=== PATIENT | male | born 1980 | race Caucasian/White ===

== ENCOUNTER 2022-12-08 01:30 | Emergency (ER) | payer MEDICAID ==
[~2022-12-08] VITALS: Ht 177.8 cm; Wt 75.0 kg
[2022-12-08 02:03] LABS: BASOPHILS # (AUTO) 0.1 X10'3 (0-0.2); BASOPHILS % (AUTO) 0.7 % (0-1); EOSINOPHILS % (AUTO) 0.2 % (0-6); HEMATOCRIT 50.7 % (42.0-52.0); HEMOGLOBIN 17.1 g/dl (14.0-17.9); LYMPHOCYTES # (AUTO) 2.1 X10'3 (1.1-4.8); LYMPHOCYTES % (AUTO) 23.4 % (21-51); MEAN CORPUSCULAR HEMOGLOBIN 34.2 PG (27.0-31.0); MEAN CORPUSCULAR HGB CONC 33.7 g/dL (33.0-36.5); MEAN CORPUSCULAR VOLUME 101.3 FL (78-98); MEAN PLATELET VOLUME 7.9 FL (7.4-10.4); MONOCYTES # (AUTO) 0.6 X10'3 (0-0.9); MONOCYTES % (AUTO) 7.1 % (2-12); NEUTROPHILS # (AUTO) 6.3 X10'3 (1.8-7.7); NEUTROPHILS % (AUTO) 68.6 % (42-75); PLATELET COUNT 416 X10'3 (140-440); RED BLOOD COUNT 5.01 X10'6 (4.70-6.10); RED CELL DISTRIBUTION WIDTH 14.4 % (11.5-14.5); WHITE BLOOD COUNT 9.2 X10'3 (4.5-11.0)
[2022-12-08] MEDS ORDERED: normal saline 1000ML IV soln IVB ONE (02:10)
[2022-12-08] MEDS ORDERED: famotidine/PF 10 mg/ml inj IV ONE (02:10)
[2022-12-08] MEDS ORDERED: ondansetron/PF 4mg/2ml inj IV ONE (02:10)
[2022-12-08 02:14] LABS: ALANINE AMINOTRANSFERASE 48 U/L (12-78); ALBUMIN 3.2 G/DL (3.4-5.0); ALKALINE PHOSPHATASE 92 IU/L (46-116); ANION GAP 6 (8-16); ASPARTATE AMINO TRANSFERASE 35 U/L (10-37); BILIRUBIN,TOTAL 0.3 MG/DL (0.1-1.0); BLOOD UREA NITROGEN 2 MG/DL (7-18); BUN/CREATININE RATIO 1.7 (10.0-20.0); CALCIUM 9.3 MG/DL (8.5-10.1); CHLORIDE 107 MMOL/L (99-107); CREATININE 1.19 MG/DL (0.60-1.10); GLUCOSE 122 MG/DL (70-104); LIPASE 94 U/L (73-393); POTASSIUM 4.2 MMOL/L (3.5-5.1); SODIUM 139 MMOL/L (135-145); TOTAL CARBON DIOXIDE 25.7 MMOL/L (24-32); TOTAL PROTEIN 6.5 G/DL (6.4-8.2); eGFR 68 ML/MIN
[2022-12-08] MEDS ORDERED: ONDA8TAB13 PO (03:38)
[2022-12-08 03:58] VITALS: BP 137/84
== END 2022-12-08 03:59 | disposition home or self-care (01) ==
LOC: ER 01:31
DX: K29.70 Gastritis, unspecified, without bleeding (principal); Z79.899 Other long term (current) drug therapy
CPT/HCPCS: 36415; 80053; 83690; 85025; 96361; 96374; 96375; 99284; J2405; J3490; J7030

== ENCOUNTER 2022-12-14 19:39 | Emergency (ER) | payer MEDICAID ==
[~2022-12-14] VITALS: Ht 177.8 cm; Wt 72.0 kg
[~2022-12-14 19:39] MED LIST: ONDA8TAB13 PO
[2022-12-14 20:25] LABS: BASOPHILS # (AUTO) 0.1 X10'3 (0-0.2); EOSINOPHILS % (AUTO) 0.6 % (0-6); HEMATOCRIT 50.8 % (42.0-52.0); HEMOGLOBIN 17.1 g/dl (14.0-17.9); LYMPHOCYTES # (AUTO) 2.2 X10'3 (1.1-4.8); LYMPHOCYTES % (AUTO) 27.3 % (21-51); MEAN CORPUSCULAR HGB CONC 33.6 g/dL (33.0-36.5); MEAN CORPUSCULAR VOLUME 101.4 FL (78-98); MEAN PLATELET VOLUME 7.2 FL (7.4-10.4); MONOCYTES # (AUTO) 0.8 X10'3 (0-0.9); MONOCYTES % (AUTO) 10.2 % (2-12); NEUTROPHILS % (AUTO) 60.9 % (42-75); PLATELET COUNT 417 X10'3 (140-440); RED BLOOD COUNT 5.01 X10'6 (4.70-6.10); RED CELL DISTRIBUTION WIDTH 14.5 % (11.5-14.5); WHITE BLOOD COUNT 8.1 X10'3 (4.5-11.0)
[2022-12-14 20:26] LABS: CLARITY,URINE CLEAR (Clear); COLOR,URINE STRAW (Yellow); GLUCOSE, URINE NEGATIVE (Neg); KETONES,URINE NEGATIVE (Neg); LEUKOCYTE ESTERASE ,URINE NEGATIVE (Neg); NITRITES, URINE NEGATIVE (Neg); OCCULT BLOOD,URINE NEGATIVE (Neg); PH,URINE 6.5 (4.8-8.0); PROTEIN,URINE NEGATIVE (Neg); UROBILINOGEN,URINE 0.2 E.U/dL (0.2-1.0)
[2022-12-14 20:36] LABS: UA COLLECTION TYPE CLN CATCH MIDSTREAM
[2022-12-14 20:41] LABS: ALANINE AMINOTRANSFERASE 121 U/L (12-78); ALBUMIN 3.2 G/DL (3.4-5.0); ALKALINE PHOSPHATASE 78 IU/L (46-116); ANION GAP 4 (8-16); ASPARTATE AMINO TRANSFERASE 47 U/L (10-37); BILIRUBIN,TOTAL 0.2 MG/DL (0.1-1.0); BLOOD UREA NITROGEN 3 MG/DL (7-18); BUN/CREATININE RATIO 2.5 (10.0-20.0); CALCIUM 8.3 MG/DL (8.5-10.1); CHLORIDE 105 MMOL/L (99-107); CREATININE 1.21 MG/DL (0.60-1.10); GLUCOSE 64 MG/DL (70-104); LIPASE 143 U/L (73-393); POTASSIUM 4.6 MMOL/L (3.5-5.1); SODIUM 136 MMOL/L (135-145); TOTAL CARBON DIOXIDE 27.5 MMOL/L (24-32); TOTAL PROTEIN 6.5 G/DL (6.4-8.2); eGFR 66 ML/MIN
--- NOTE | 2022-12-14 21:44 | NUR ---
PT STATES HE IS HERE FOR DETOX HE LAST HAD ETOH THIS AM STATES HE DRINKS A 12 PACK PER DAY FOR YEARS. PT STATES HE IS EXPERIENCING BURNING IN HIS UPPER ABD R/T ETOH USE, N/V. PT STATES HE IS HAPPY HE IS ALIVE DENIES S/I, H/I AND IS READY TO STOP DRINKING. N/V IS INTERMITTENT PER PT.
[2022-12-14] MEDS ORDERED: normal saline 1000ml 1,000 ML IV ONE ×2 (22:30→23:55)
[2022-12-14] MEDS ORDERED: LORazepam 2 mg/ml vial IV ONE (22:30)
[2022-12-14] MEDS ORDERED: ondansetron/PF 4mg/2ml inj IV ONE (22:30)
[2022-12-14 22:50] LABS: ETHANOL 0.065 GM/DL (0.0-0.010)
--- NOTE | 2022-12-14 23:01 | NUR ---
LAST DRINK THIS MORNING. AWAKENING IN SWEATS, GENERALIZED FEELINGS OF ANXIETY/AWEFULLNESS AND PAIN IN ABD. SHAKINESS. MENTAL FOG. DENIES HALLUCINATIONS.
[2022-12-14] MEDS ORDERED: folic acid 1mg tablet PO ONE (23:55)
[2022-12-14] MEDS ORDERED: multivitamins, therapeutics tablet PO STA (23:55)
[2022-12-14] MEDS ORDERED: thiamine 100mg tablet PO ONE (23:55)
[2022-12-14] MEDS ORDERED: LORazepam 1 MG tablet PO ONE (23:55)
[2022-12-14] MEDS ORDERED: ondansetron 4mg rapidly disintigrating tab PO ONE (23:55)
[2022-12-14] MEDS ORDERED: GABA-534 PO (23:59)
[2022-12-14] MEDS ORDERED: ATI1T PO (23:59)
[2022-12-14] MEDS ORDERED: ONDA4TAB12 PO (23:59)
[2022-12-15 00:54] VITALS: BP 126/73
== END 2022-12-15 00:56 | disposition home or self-care (01) ==
LOC: ER 19:39
DX: F17.200 Nicotine dependence, unspecified, uncomplicated (principal); F10.239 Alcohol dependence with withdrawal, unspecified; Z90.49 Acquired absence of other specified parts of digestive tract; Y90.9 Presence of alcohol in blood, level not specified
CPT/HCPCS: 36415; 80053; 80320; 81003; 83690; 85025; 96361; 96374; 96375; 99285; J2060; J2405; J7030

== ENCOUNTER 2022-12-15 23:06 | Emergency (ER) | payer MEDICAID ==
[~2022-12-15] VITALS: Ht 177.8 cm; Wt 77.2 kg
[~2022-12-15 23:06] MED LIST changes: +ATI1T PO; +GABA-534 PO; +ONDA4TAB12 PO
[2022-12-15 23:10] VITALS: BP 146/86
== END 2022-12-15 23:37 ==
LOC: ER 23:07
DX: Z04.2 Encounter for examination and observation following work accident (principal); Z90.49 Acquired absence of other specified parts of digestive tract; Z79.899 Other long term (current) drug therapy
CPT/HCPCS: 99283

== ENCOUNTER 2024-12-23 17:14 | Emergency (ER) | payer MEDICAID ==
[~2024-12-23] VITALS: Ht 177.8 cm; Wt 70.5 kg
[~2024-12-23 17:14] MED LIST changes: -GABA-534 PO; +GABA-535 PO; +ONDA-243 PO; +ONDA-245 PO; -ONDA4TAB12 PO; -ONDA8TAB13 PO
[2024-12-23 17:25] VITALS: TEMP 98.6
[2024-12-23] MEDS ORDERED: NO HOME MEDS (17:47)
--- NOTE | 2024-12-23 18:15 | Physician Documentation ---
History of Present Illness ~ Chief Complaint: Rectal Bleeding Stated Complaint: "BLEEDING, I THINK I NEED A COLONOSCOPY" Time Seen by MD: 18:14 Primary Medical Doctor: none Source: patient Mode of Arrival: POV Exam Limitations: no limitations HPI Chief Complaint: Rectal bleeding Caveat: None Independent Historians: History of Present Illness: Patient is a 44-year-old man who comes in complaining of rectal bleeding for AT LEAST SIX YEARS. Patient comes in tonight because he is just 2nd tired of the bleeding. He does have some pain around the anus. Patient states that he always has blood when he wipes. Patient denies any abdominal pain. No nausea vomiting diarrhea. No fever. Patient had a colonoscopy a year ago that was unremarkable. Review of systems: All systems were reviewed and are negative except for what is indicated in the history of present illness. Past Medical History: Hematochezia/rectal bleeding Past Surgical History: None Social History: Denies tobacco use, denies alcohol use, denies drug use Medications: Reviewed as documented Nursing Notes Allergies: Reviewed as documented in Nursing Notes Medication Reconciliation Allergies: Coded Allergies: No Known Allergies (Unverified , 12/08/22) Miscellaneous Medications Home Med List (No Home Medications), (Reported) Discontinued Medications Gabapentin (Gabapentin), 1 CAP PO Q8H Discontinued Reason: patient no longer taking Lorazepam (Ativan), 1 MG PO Q8H PRN ANXIETY PRN for alcohol withdrawal Discontinued Reason: patient no longer taking ONDANSETRON ODT 4mg tablet (Ondansetron Odt), 1 TABLET PO Q6H PRN for nausea/vomiting Discontinued Reason: patient no longer taking Ondansetron 8mg ODT (Ondansetron Odt), 1 TAB PO Q6H Discontinued Reason: patient no longer taking Past Medical History Past Medical History: No Pertinent History Past Surgical History: cholecystectomy Alcohol Use: Abuse Drug Use: none Lives In: Home Review of Systems All Other Systems at this time: Reviewed and Negative ROS Patient denies any other acute symptoms other than above. All other systems are negative Physical Exam Vital Signs: RN Vital Signs have been reviewed: Yes, Temperature: 98.6, Heart Rate: 82, Respiratory Rate: 12, BP: 118/83, Pulse Oximetry: 96, Weight: 70.450 Oxygen Flow Rate: 0 Pulse Oximetry Reflects: adequate oxygenation Physical Exam General Appearance: No distress HEENT: Normal OP, moist oral mucosa, PERRL, EOMI Neck: supple, normal ROM, trachea midline Pulmonary: No respiratory distress, CTA, BS equal Cardiac: RRR, no murmur, rub or gallop, GI: nondistended, soft, nontender, normal bowel sounds, no guarding, no rebound Rectal: Extremities: normal ROM, no swelling, non-tender Skin: intact, dry, warm, no rashes Neuro: AAOx3, speech is clear, no focal motor weakness Psych: normal affect, good eye contact, no apparent hallucination, normal speech Progress Results/Orders Results/Orders Orders - ARMANDO GARCIA MD Type And Screen (12/23/24 18:21) Monitor (12/23/24 18:21) Completed Orders - ARMANDO GARCIA MD Cbc/Diff (12/23/24 18:21) PTT (12/23/24 18:21) Pt Inr (12/23/24 18:21) Urinalysis, Cult If Indicated (12/23/24 18:21) CMP (12/23/24 18:21) Vital Signs 12/23/24 12/23/24 12/23/24 12/23/24 17:25 17:43 18:26 18:27 Temp 98.6 Pulse 82 78 Resp 16 12 17 B/P (MAP) 118/83 113/75 (88) Pulse Ox 96 97 O2 Flow Rate 0 12/23/24 18:29 B/P (MAP) Laboratory Tests Test 12/23/24 18:38 12/23/24 18:57 White Blood Count 4.8 Red Blood Count 4.90 Hemoglobin 17.1 Hematocrit 49.5 Mean Corpuscular Volume 100.9 H Mean Corpuscular Hemoglobin 34.8 H Mean Corpuscular Hemoglobin Concent 34.5 Red Cell Distribution Width 13.7 Platelet Count 351 Mean Platelet Volume 7.3 L Neutrophils (%) (Auto) 39.5 L Lymphocytes (%) (Auto) 50.3 Monocytes (%) (Auto) 7.6 Eosinophils (%) (Auto) 1.1 Basophils (%) (Auto) 1.5 H Neutrophils # (Auto) 1.9 Lymphocytes # (Auto) 2.4 Monocytes # (Auto) 0.4 Eosinophils # (Auto) 0.1 Basophils # (Auto) 0.1 CBC Comment Prothrombin Time 10.8 INR International Normalized Ratio 1.1 Activated Partial Thromboplast Time 27 Coagulation Comments Sodium Level 142 Potassium Level 4.3 Chloride Level 104 Carbon Dioxide Level 30.9 Anion Gap 7 L Blood Urea Nitrogen 6 L Creatinine 1.19 H Estimated GFR/1.73 m2 67 BUN/Creatinine Ratio 5.0 L Glucose Level 80 Calcium Level 8.5 Total Bilirubin 0.5 Aspartate Amino Transf (AST/SGOT) 93 H Alanine Aminotransferase (ALT/SGPT) 87 H Alkaline Phosphatase 93 Total Protein 6.9 Albumin 3.3 L Globulin 3.6 Albumin/Globulin Ratio 0.9 L Chemistry Comments Urine Specimen Description Non-specified Urine Color Yellow Urine Clarity Clear Urine pH 6.0 Urine Specific [place] <=1.005 Urine Protein Negative Urine Glucose (UA) Negative Urine Ketones Negative Urine Occult Blood Negative Urine Nitrite Negative Urine Bilirubin Negative Urine Urobilinogen 0.2 Urine Leukocyte Esterase Negative Urine Culture Indicated Not ind Volume Urine Centrifuged 10 ml Urine Comment Medical Decision Making Additional info obtained from: old records Findings Differential diagnosis includes but is not limited to: Internal hemorrhoids, external hemorrhoids, lower GI bleed, upper GI bleed, AVM Laboratory data independent interpretation: CBC: Normal hemoglobin and hematocrit of 17.1 and 49.5 respectively. MCV is elevated at a 100.9 CMP: Creatinine is mildly elevated at 1.19 with an estimated GFR of 67. Mildly elevated AST of 93, mildly elevated ALT of 87 normal total bilirubin and normal alk-phos of 93 Coags: Normal PT, normal PTT Emergency department course/medical decision-making: PATIENT PRESENTS WITH RECTAL BLEEDING THAT HAS BEEN ONGOING FOR SIX YEARS. T HERE WAS NO NEW OR ACUTE BLEEDING THAT HAS BEEN OUT OF THE ORDINARY. PHYSICAL EXAM REVEALS INTERNAL HEMORRHOIDS THE LIKELY CAUSE FOR HIS BLEEDING. HE IS GOING TO BE REFERRED TO HIS PRIMARY CARE DOCTOR FOR REFERRAL TO A COLORECTAL SURGEON SINCE THIS OCCURS ON A WEEKLY IF NOT DAILY BASIS FOR SIX YEARS. PATIENT MAY NEED TO SEE A PATROL COMMUNITY SERVICE OFFICER PRIOR TO COLORECTAL SURGEON CONSULTATION. PATIENT HAS A NORMAL HEMOGLOBIN AND HEMATOCRIT. PATIENT DOES NOT HAVE A BLEEDING DIATHESIS. TEST RESULTS AND FOLLOW UP PLAN DISCUSSED WITH THE PATIENT. PATIENT IS STABLE FOR DISCHARGE. Departure Time of Disposition: 19:45 Disposition: 01 HOME / SELF CARE / HOMELESS Impression: Primary Impression: Internal hemorrhoids Condition: Stable Discharge Instructions: Hemorrhoids, [id number] Additional Instructions: YOUR BLEEDING IS THOUGHT TO BE FROM INTERNAL HEMORRHOIDS. FOLLOW UP WITH YOUR PRIMARY CARE DOCTOR FOR REFERRAL TO A COLORECTAL SURGEON FOR EVALUATION. Education Educated: Patient Educated regarding: diagnosis, treatment, need for follow up Signature Scribe Signature: No scribe Attestation: No scribe ARMANDO GARCIA MD Dec 23, 2024 18:15
[2024-12-23 18:27] VITALS: BP 113/75; PULSE 78; RESP 17; O2SAT 97
[2024-12-23 18:49] LABS: BASOPHILS # (AUTO) 0.1 X10'3 (0-0.2); BASOPHILS % (AUTO) 1.5 % (0-1); EOSINOPHILS # (AUTO) 0.1 X10'3 (0-0.9); EOSINOPHILS % (AUTO) 1.1 % (0-6); HEMATOCRIT 49.5 % (42.0-52.0); HEMOGLOBIN 17.1 g/dl (14.0-17.9); LYMPHOCYTES # (AUTO) 2.4 X10'3 (1.1-4.8); LYMPHOCYTES % (AUTO) 50.3 % (21-51); MEAN CORPUSCULAR HEMOGLOBIN 34.8 PG (27.0-31.0); MEAN CORPUSCULAR HGB CONC 34.5 g/dL (33.0-36.5); MEAN CORPUSCULAR VOLUME 100.9 FL (78-98); MEAN PLATELET VOLUME 7.3 FL (7.4-10.4); MONOCYTES # (AUTO) 0.4 X10'3 (0-0.9); MONOCYTES % (AUTO) 7.6 % (2-12); NEUTROPHILS # (AUTO) 1.9 X10'3 (1.8-7.7); NEUTROPHILS % (AUTO) 39.5 % (42-75); PLATELET COUNT 351 X10'3 (140-440); RED CELL DISTRIBUTION WIDTH 13.7 % (11.5-14.5); WHITE BLOOD COUNT 4.8 X10'3 (4.5-11.0)
[2024-12-23 19:02] LABS: APTT 27 SECONDS (22-32); INR 1.1 INR; PROTHROMBIN TIME 10.8 SECONDS (9.0-12.0)
[2024-12-23 19:03] LABS: ALANINE AMINOTRANSFERASE 87 U/L (12-78); ALBUMIN 3.3 G/DL (3.4-5.0); ALBUMIN/GLOBULIN RATIO 0.9 (1.1-1.5); ALKALINE PHOSPHATASE 93 IU/L (46-116); ANION GAP 7 (8-16); ASPARTATE AMINO TRANSFERASE 93 U/L (10-37); BILIRUBIN,TOTAL 0.5 MG/DL (0.1-1.0); BLOOD UREA NITROGEN 6 MG/DL (7-18); CALCIUM 8.5 MG/DL (8.5-10.1); CHLORIDE 104 MMOL/L (99-107); CREATININE 1.19 MG/DL (0.60-1.10); GLUCOSE 80 MG/DL (70-104); POTASSIUM 4.3 MMOL/L (3.5-5.1); SODIUM 142 MMOL/L (135-145); TOTAL CARBON DIOXIDE 30.9 MMOL/L (24-32); TOTAL PROTEIN 6.9 G/DL (6.4-8.2); eCRCL 81 ML/MIN; eGFR 67 ML/MIN
[2024-12-23 19:16] LABS: BILIRUBIN,URINE NEGATIVE (Neg); CLARITY,URINE CLEAR (Clear); COLOR,URINE YELLOW (Yellow); GLUCOSE, URINE NEGATIVE (Neg); KETONES,URINE NEGATIVE (Neg); LEUKOCYTE ESTERASE ,URINE NEGATIVE (Neg); NITRITES, URINE NEGATIVE (Neg); OCCULT BLOOD,URINE NEGATIVE (Neg); PROTEIN,URINE NEGATIVE (Neg); UROBILINOGEN,URINE 0.2 E.U/dL (0.2-1.0)
[2024-12-23 19:19] LABS: UA COLLECTION TYPE NON-SPECIFIED
== END 2024-12-23 20:07 | disposition home or self-care (01) ==
LOC: ER 17:14
DX: K64.8 Other hemorrhoids (principal); K62.5 Hemorrhage of anus and rectum; F10.90 Alcohol use, unspecified, uncomplicated; Z90.49 Acquired absence of other specified parts of digestive tract; Y90.9 Presence of alcohol in blood, level not specified
CPT/HCPCS: 36415; 80053; 81003; 85025; 85610; 85730; 86885; 86900; 86901; 99283